=== PATIENT | female | born 1945 | race Caucasian/White ===

== ENCOUNTER 2016-08-22 13:35 | Emergency (ER) | payer MEDICARE, OTHER ==
[~2016-08-22 13:35] MED LIST: BENADRYL ALLERG25 M1 PO; LEXAPRO10 M2 PO; LIPITOR20 M1 PO; LISINOPRIL-HCT1 EAC2 PO; LOPRESSOR100 MG; LOPRESSOR50 M1 PO; METOPROLOL TART50 M2 PO; MOBIC7.5 MG/5 M; OMEPRAZOLE20 M3 PO; PLAVIX75 M1 PO; PREDNISONE20 MG PO; PREDNISONE50 M1 PO; PREMARIN42.5 GM; ROPINIROLE HCL0.5 M1 PO; TRAMADOL HCL50 M2 PO
[2016-08-22] MEDS ORDERED: PERCOCET 5-3251 EACH PO (13:40)
== END 2016-08-22 14:14 ==
LOC: EDMED 13:35
DX: M54.5 Low back pain (principal); I10 Essential (primary) hypertension; E78.5 Hyperlipidemia, unspecified
CPT/HCPCS: G8978-GP-CJ; G8979-GP-CJ; G8980-GP-CJ; J1040; J2270